=== PATIENT | male | born 2000 | race Caucasian/White ===

== ENCOUNTER 2018-04-06 23:45 | Inpatient (IN) ==
[2018-04-06] MEDS ORDERED: Tetanus/Diphtheria Toxoid Adult Vaccine Inj 0.5 ML Vial IM ONE (23:52)
[2018-04-06] MEDS ORDERED: Morphine Inj 4 MG/ML Vial IV.PUSH ONE (23:52)
[2018-04-06] MEDS ORDERED: Lidocaine 2%/Epinephrine 1:100,000 30 ML MDV INFILTRATN ONE (23:53)
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
[2018-04-07 01:53] LABS: Baso # (Auto) 0.1 th/mm3 (0.0-0.2); Baso % (Auto) 0.9 % (0.0-2.0); Eos # (Auto) 0.2 th/mm3 (0.0-0.4); Eos % (Auto) 2.2 % (0.0-4.0); Hematocrit 44.8 % (39.0-51.0); Lymph # (Auto) 3.8 th/mm3 (1.0-4.8); Lymph % (Auto) 34.5 % (9.0-44.0); Mean Corpuscular HGB Conc 33.5 % (32.0-36.0); Mean Corpuscular Hemoglobin 30.4 pg (27.0-34.0); Mean Corpuscular Volume 90.7 fL (80.0-100.0); Mean Platelet Volume 9.2 fL (7.0-11.0); Mono # (Auto) 0.7 th/mm3 (0.0-0.9); Mono % (Auto) 6.2 % (0.0-8.0); Neut # (Auto) 6.3 th/mm3 (1.8-7.7); Neut % (Auto) 56.2 % (16.0-70.0); Platelet Count 249 th/mm3 (150-450); Red Blood Count 4.94 mil/mm3 (4.50-5.90); Red Cell Distribution Width 13.1 % (11.6-17.2); White Blood Count 11.1 th/mm3 (4.0-11.0)
[2018-04-07 02:15] LABS: Activated Partial Thrombo Time 25.4 sec (23.4-31.7)
[2018-04-07 02:16] LABS: Prothrombin Time 10.5 sec (9.8-11.6)
[2018-04-07 02:22] LABS: Calcium 8.5 mg/dL (8.5-10.1); Carbon Dioxide 26.8 meq/L (21.0-32.0); Potassium 3.5 meq/L (3.5-5.1)
[2018-04-07] MEDS ORDERED: Bisacodyl 10 MG Supp RECTAL PRN (02:38)
[2018-04-07] MEDS ORDERED: Morphine Sulfate Inj 2 MG/ML Vial IV.PUSH PRN (02:38)
[2018-04-07] MEDS ORDERED: Acetaminophen 325 MG Tablet PO PRN (02:38)
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
[2018-04-07] MEDS: Sod Chloride 0.9% Inj 1,000 ML IV.CONT SCH ×2 (02:52→13:38)
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
[2018-04-07] MEDS: Senna/Docusate Sodium 8.6/50 MG Tablet PO SCH ×2 (10:44→20:50)
[2018-04-07] MEDS: Ketorolac Inj 30 MG/ML (IVP) Vial IV.PUSH PRN ×2 (15:22→20:48)
[2018-04-07 16:17] LABS: Bacteria,Urine Occasional /hpf; Bilirubin,Urine Negative (Negative); Clarity,Urine Clear (Clear); Color,Urine Yellow (Yellw/Straw); Glucose,Urine (UA) Negative (Negative); Leukocyte Esterase,Urine Negative (Negative); Mucus,Urine Few /lpf (Occasional); Nitrite,Urine Negative (Negative); Specific Gravity,Urine 1.019 (1.002-1.035); Squamous Epithelial Cell,Urine <1 /hpf (0-5)
[2018-04-07] MEDS ORDERED: ceFAZolin 1 GM Premix Inj 2 GM/100 ML PIGGYBACK IV.SIG ONE (17:07)
[2018-04-07] MEDS ORDERED: Post-op Orders (for Pharmacy) OTHER STA (19:06)
[2018-04-07] MEDS ORDERED: HYDROmorphone PF Inj 1 MG/ML Ampul IV.PUSH PRN (19:06)
[2018-04-07] MEDS ORDERED: Morphine Inj 4 MG/ML Vial ONE (19:12)
[2018-04-07] MEDS ORDERED: fentaNYL Citrate Inj 100 MCG/2 ML Ampul ONE (19:13)
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
--- NOTE | 2018-04-07 19:29 | P.OP ---
- Preoperative Diagnosis (1) DRUJ (distal radioulnar joint) dislocation, closed (2) Galeazzi's fracture of left radius, initial encounter for closed fracture (3) Closed fracture dislocation of left wrist - Postoperative Diagnosis (1) DRUJ (distal radioulnar joint) dislocation, closed Surgeon: Vinny Best MD
--- NOTE | 2018-04-07 19:35 | P.OP ---
- Preoperative Diagnosis (1) Galeazzi's fracture of left radius, initial encounter for closed fracture (2) DRUJ (distal radioulnar joint) dislocation, closed - Postoperative Diagnosis (1) Galeazzi's fracture of left radius, initial encounter for closed fracture (2) DRUJ (distal radioulnar joint) dislocation, closed Date of procedure: 04/07/18 Procedure: 1. Left radial shaft open reduction and internal fixation and closed reduction of distal radial ulnar joint 2. Left distal radial ulnar joint closed reduction and K wire fixation with 2.0 K wires Implants: Synthes Anesthesia: GETA Surgeon: Vinny Best MD [employer] Sergeant: Wilian Mcclendon Estimated blood loss (mL): 50 Pathology: none sent Operation and Findings: Patient was brought to the operating room. He was placed under general anesthesia. Left upper extremity was prepped and draped in usual sterile fashion. IV antibiotics were given. Timeout was completed. The limb was exsanguinated tourniquet inflated. An anterior approach of Sánchez was performed with the radial artery mobilized towards the radial side and the flexor carpi radialis and flexor musculature retracted to the ulnar side the incision was extended to the level of the bone and subperiosteal dissection was performed to expose the fracture site. There was some mild comminution at the fracture site the fracture fragments were provisionally fixated with one K wire fixating a small butterfly fragment. This allowed for anatomic alignment of the other fracture fragments and then proceeded with fixation with a plate and clamps and confirmed the overall alignment. We then proceeded with a compression screw distally. We then proceeded with a compression screw proximally and compressed the fracture site. We then proceeded with 2 3.5 locking screws proximally and then proceeded with 4 distal locking screws just proximal to the joint and 1 3.5 locking screw just distal to the fracture site. The radius appears anatomic. The distal radial ulnar joint aligned with supination, but dislocated with pronation. The forearm was completely supinated and small incisions were made over the distal ulna and the distal radial ulnar joint was pinned with 2 2.0 mm K wires. Hardcopy fluoroscopic x-rays AP and lateral show the final result. We proceeded to close with absorbable sutures and nylon on the skin. Xeroform was applied sterile dressing applied a sugar tong splint in supination was applied. Large sling applied. The patient was awoken and returned to recovery room in stable condition. The bilingual administrative assistant is an advanced registered nurse practitioner. His skill set is medically necessary for the performance of the operation.
--- NOTE | 2018-04-07 19:39 | XR ---
EXAM DATE: 04/07/2018 7:35 PM EST AGE/SEX: 17 years / Male INDICATIONS: Hardware placement left forearm CLINICAL DATA: This is the patient's subsequent encounter. Patient reports that signs and symptoms h ave been present for 2 days and indicates a pain score of Nonresponsive. MEDICAL/SURGICAL HISTORY: Non-responsive. Non-responsive. COMPARISON: [place], FOREARM LEFT 2V, 04/07/2018. [place], FOREARM LEFT 2V, 04/07/2018. . FINDINGS: 5 spot images of the distal left forearm obtained in the operating room during a procedure documents a volar distal radial side plate with multiple interlocking screws traversing the comminuted distal r adius fracture. 2 K wires traverse the distal radius and ulna adjacent to the distal radioulnar joint . Ulnar styloid fracture remains placed. CONCLUSION: Improved alignment following ORIF, as above. Electronically signed by: Taco Saeed MD 04/07/2018 7:38 PM EST
[2018-04-07] MEDS ORDERED: ceFAZolin Inj 2,000 MG in Sodium Chlor 0.9% Inj 80 ML IV.SIG SCH (22:00)
[2018-04-07] MEDS ORDERED: ceFAZolin 2 GM Premix Inj 2 GM/50 ML PIGGYBACK IV.SIG SCH (22:00)
[2018-04-08] MEDS: Sod Chloride 0.9% Inj 1,000 ML IV.CONT SCH ×2 (00:35→13:30)
[2018-04-08] MEDS: ceFAZolin 2 GM Premix Inj 2 GM/50 ML PIGGYBACK IV.SIG SCH ×2 (00:56→09:34)
[2018-04-08] MEDS: Ketorolac Inj 30 MG/ML (IVP) Vial IV.PUSH PRN (01:55)
[2018-04-08 05:30] LABS: Baso % (Auto) 0.3 % (0.0-2.0); Eos % (Auto) 0.2 % (0.0-4.0); Hematocrit 41.2 % (39.0-51.0); Lymph # (Auto) 1.3 th/mm3 (1.0-4.8); Lymph % (Auto) 10.2 % (9.0-44.0); Mean Corpuscular HGB Conc 33.9 % (32.0-36.0); Mean Corpuscular Hemoglobin 30.7 pg (27.0-34.0); Mean Corpuscular Volume 90.7 fL (80.0-100.0); Mean Platelet Volume 8.6 fL (7.0-11.0); Mono % (Auto) 7.6 % (0.0-8.0); Neut # (Auto) 10.3 th/mm3 (1.8-7.7); Neut % (Auto) 81.7 % (16.0-70.0); Platelet Count 221 th/mm3 (150-450); Red Blood Count 4.54 mil/mm3 (4.50-5.90); Red Cell Distribution Width 13.3 % (11.6-17.2); White Blood Count 12.6 th/mm3 (4.0-11.0)
[2018-04-08 05:53] LABS: Albumin 3.6 g/dL (3.4-5.0); Anion Gap 6 meq/L (5-15); Aspartate Aminotransferase 21 U/L (15-39); Blood Urea Nitrogen 10 mg/dL (7-18); Calcium 8.4 mg/dL (8.5-10.1); Carbon Dioxide 26.7 meq/L (21.0-32.0); Chloride 107 meq/L (98-107); Glomerular Filtration Rate Greater Than 89 mL/min (>89); Glucose,Random 113 mg/dL (74-106); Sodium 140 meq/L (136-145)
[2018-04-08 05:58] LABS: Alanine Aminotransferase 47 U/L (9-52); Alkaline Phosphatase 92 U/L (45-117); Total Protein 7.1 g/dL (6.4-8.2)
[2018-04-08] MEDS: Senna/Docusate Sodium 8.6/50 MG Tablet PO SCH (09:31)
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
--- NOTE | 2018-04-08 22:08 | P.PNOP ---
Subjective Interval history: Patient comfortable. Pain controlled. Physical Exam Vital signs: Vital Signs 04/07/18 23:50 04/08/18 04:30 04/08/18 08:00 Temperature 98.8 F 98.3 F 97.6 F Pulse Rate 84 72 83 Respiratory Rate 17 16 18 Blood Pressure 140/64 126/58 L 146/84 H Pulse Oximetry 95 94 L 97 04/08/18 12:00 Temperature 98.1 F Pulse Rate 80 Respiratory Rate 16 Blood Pressure 131/69 Pulse Oximetry 97 Intake & Output 04/08/18 04/08/18 04/09/18 06:59 18:59 06:59 Intake Total 3150 / 3150 50 / 50 Output Total 20 / 20 Balance 3130 / 3130 50 / 50 Weight 108.6 kg Intake: IV 1050 / 1050 50 / 50 NS Inj 1,000 ML @ 100 mls/hr IV 1000 / 1000 .CONT .Q10H [facility] Rx#:[id number] Ancef 2 GM Premix Inj 2 gm In 50 / 50 50 / 50 50 ml @ 100 mls/hr IV.SIG Q8H [facility] Rx#:[id number] Oral 600 / 600 Anesthesia Amount 1500 / 1500 Output: Urine 0 / 0 Estimated Blood Loss Other: # Voids 2 Date of Last Bowel Movement 04/06/18 04/06/18 # Bowel Movements 0 Narrative: Left wrist splint and dressing C/D/I good movement of fingers +sensations Right knee sushil wrap in place knee immobilizer in place distally motor, neuro, and sensory Results - Labs CBC & Chem 7: 04/08/18 05:00 04/08/18 05:00 Laboratory Results - last 24 hr 04/08/18 04/08/18 05:00 05:00 WBC 12.6 H RBC 4.54 Hgb 14.0 Hct 41.2 MCV 90.7 MCH 30.7 MCHC 33.9 RDW 13.3 Plt Count 221 MPV 8.6 Neut % (Auto) 81.7 H Lymph % (Auto) 10.2 [place] % (Auto) 7.6 Eos % (Auto) 0.2 Baso % (Auto) 0.3 Neut # (Auto) 10.3 H Lymph # (Auto) 1.3 [place] # (Auto) 1.0 H Eos # (Auto) 0.0 Baso # (Auto) 0.0 WBC Differential . Differential Comment Auto diff final Sodium 140 Potassium 4.0 Chloride 107 Carbon Dioxide 26.7 Anion Gap 6 BUN 10 Creatinine 0.97 Estimated GFR Greater than 89 Random Glucose 113 H Calcium 8.4 L Total Bilirubin 0.3 AST 21 ALT 47 Alkaline Phosphatase 92 Total Protein 7.1 Albumin 3.6 - Procedures Date of procedure: 04/07/18 Procedure: 1. Left radial shaft open reduction and internal fixation and closed reduction of distal radial ulnar joint 2. Left distal radial ulnar joint closed reduction and K wire fixation with 2.0 K wires Implants: Synthes Anesthesia: GETA Surgeon: Vinny Best MD Assessment and Plan - Problem List (1) Galeazzi's fracture of left radius, initial encounter for closed fracture Code(s): S52.372A - Galeazzi's fracture of left radius, initial encounter for closed fracture Status: Acute (2) Fracture of styloid process of left ulna Code(s): S52.612A - Displaced fracture of left ulna styloid process, initial encounter for closed fracture Status: Acute Qualifiers: Encounter type: initial encounter Fracture type: closed (3) Tear of triangular fibrocartilage complex (TFCC) of left wrist Code(s): S63.592A - Other specified sprain of left wrist, initial encounter Status: Acute - Assessment and Plan POD#1 1. Left radial shaft open reduction and internal fixation and closed reduction of distal radial ulnar joint 2. Left distal radial ulnar joint closed reduction and K wire fixation with 2.0 K wires. PLAN: Pain management - Percocet Physical therapy - Non weight bearing to LUE. WBAT to RLE. Leave dressing in place. If there is significant drainage, then remove dressing. Clean with alcohol and apply a new dry dressing daily. F/U in [address] Best or [employer] in office
== END 2018-04-08 15:25 | disposition home or self-care (01) ==
LOC: NEPE 23:45 → NEDA 23:45 → OBSVTOIN 04-07 02:39 → N06 04-07 03:19
PROVIDERS: ADMIT Internal Medicine; ATTEND Internal Medicine